=== PATIENT | male | born 1955 | race Caucasian/White ===

== ENCOUNTER 2023-01-18 10:49 | Emergency (ER) | payer OTHER ==
--- OUTSIDE RECORDS SUMMARY | 2023-01-18 10:53 | XMS REPORT | Continuity of Care Document ---
:1955 Author Organization [facility] t Address [address] [place] [address] [address] [place] [address] Care Team Providers Name Role Phone Gregg Prather Primary Care Physician GARY GONZALEZ Attending Clinician Unavailable LISYS SPARKS Attending Clinician Unavailable Bridger SLAUGHTER, Lissy Sellers Attending Clinician Bushra Gonzalez MD Attending Clinician Deb Delgado MA Attending Clinician Unavailable Saji España MD Attending Clinician Jensen Linares MD Attending Clinician Portia Glynn NP Attending Clinician Dmitriy Bond MD Attending Clinician [phone] Nurse, [facility] Attending Clinician Unavailable Gary Gonzalez MD Attending Clinician GARY GONZALEZ Admitting Clinician Unavailable SAJI ESPAÑA Admitting Clinician Unavailable Payers Payer Name Policy Type Policy Number Effective Date Expiration Date S caleb [facility] [id number] 2018 PPO 00:00:00 [employer] [id number] 2021 OUT OF NETWORK 00:00:00 Problems Condition Condition Condition Status Onset Resolution Last Treating Co mments Source Name Details Category Date Date Treatment Clinician Date 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 Diagnosed with MG in late May/ early June. On medicatio ns with good results. Acute Acute Disease Active Overview: Univer s medial medial 12-20 Formattin ity of meniscus meniscus 00:00: g of this [place] as tear of tear of 00 note Medical left knee, left knee, might be Branch subsequent subsequent different encounter encounter from the original. Added automatic ally from request for surgery [id number] Myasthenia Myasthenia Disease Active M ethodi gravis gravis 2-16 st 00:00: Hospita 00 l Arthropath Arthropath Disease Active 2017-07 U nivers y of y of 07-16 ity of lumbar lumbar 00:00: [place] facet facet 00 Medical joint joint Branch Degenerati Degenerati Disease Active 2017-07 M ethodi on of on of 07-16 st lumbar lumbar 00:00: Hospita interverte interverte 00 l bral disc bral disc Low back Low back Disease Active 2017-07 Metho di pain pain 07-16 st 00:00: Hospita 00 l Lumbar Lumbar Disease Active 2017-07 Methodi radiculopa rad[address] thy thy 00:00: Hospita 00 l Spinal Spinal Disease Active 2017-07 Methodi stenosis stenosis 1 st of lumbar of lumbar 00:00: Hosp murali region region 00 l Type 2 Type 2 Disease Active 2017-07 Methodi diabetes diabetes 0-31 st mellitus mellitus 00:00: Hospit a without without 00 l complicati complicati on, on, without without long-term long-term current current use of use of insulin insulin Dislocatio Dislocatio Disease Active Overview : Univers n of n of 9-13 Formattin ity of tarsometat tarsometat 00:00: g of this [place] arsal arsal 00 note Medical joint of joint of might be Bran ch right right different foot, foot, from the subsequent subsequent original. encounter encounter Added automatic ally from request for surgery [id number] Lisfranc Lisfranc Disease Active Unive rs dislocatio dislocatio 02-11 it y of n, right, n, right, 00:00: [place] deal initial initial 00 Medical encounter encounter Bran ch Dislocatio Dislocatio Disease Active Overview : Methodi n of joint n of joint 02-[address] foot of foot 00:00: g of this Hospi ta 00 note l might be different from the original. 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 Social History Social Habit Start Date Stop Date Quantity Comments Source Gender identity 2020-09-30 Identifies as male Stella solisst 11:51:23 gender (finding) Hospital Sexual orientation 2020-09-30 Heterosexual Meth odist 11:51:23 (finding) Hospital Exposure to Not sure University of SARS-CoV-2 (event) [facility] Alcohol intake 2022-11-27 2022-11-27 Current non-drinker M ethodist 00:00:00 00:00:00 of [facility] (finding) History of Social 2022-11-27 2022-11-[address] function 00:00:00 00:00:00 Hospital Tobacco use and 2022-11-22 2022-11-22 Smokeless tobacco Me thodist exposure 00:00:00 00:00:00 non-user Hospital Sex Ass[birth year] At [birth year] ARTURO Mclean 00:00:00 00:00:00 [facility] Center Smoking Status Start Date Stop Date Source Never smoked tobacco [facility] Medications Ordered Filled Start Stop Current Ordering Indication Dosage Frequency Signature Comments Components Source Medication Medication Date Date Medication? Clinician (SIG) Name Name HYDROcodone 2022- No 1{tbl} 1 tablet, Univers -acetaminop 01-18 Oral, ity of hen (NORCO) 15:30: 14:40 [place]CE[place] 1 [place] 10-325 mg 00 :00 dose, On Medica l tablet 1 Jhoaan 01/18/23 Branc h tablet at 1030, Routine lidocaine-e No 10mL 10 mL, Uni vers pinephrine 01-18 Intraderma it y of (XYLOCAINE 14:45: 14:41 l, ONCE, 1 [place] WITH 00 :00 dose, On Medical EPINEPHRINE Jhoana 01/18/23 Br anch ) 1 at 0945, %-1:100,000 [place] injection 10 mL methocarbam 2022- No 1000mg 1,000 mg, Univers oL 01-18 Oral, ity of (ROBAXIN) 14:45: 14:40 ONCE, 1 [place] tablet 00 :00 dose, On Medical 1,000 mg Jhoana 01/18/23 Branc h at 0945, [place] immun glob 2022- No weekly. Uni vers G,IgG,/pro/ 01-18 ity of IgA 0-50 10:25: 00:00 [place] (HIZENTRA 56 :00 Medical NE) Branch ALPRAZolam 2022- No 1mg Take 1 Univ ers 1 mg tablet 01-18 tablet by it y of 10:25: 00:00 mouth. [place] 56 :00 Medical Branch ALPRAZolam Yes 1mg QD Take 1 Metho di (XANAX) 1 11-23 tablet (1 st MG tablet 11:07: mg total) Hos [place] 19 by mouth l nightly as needed for anxiety. immun glob Yes Q7D once a Metho di G,IgG,/pro/ 5- week. st IgA 0-50 11:07: Hospita (HIZENTRA 19 l SUBQ) semaglutide Yes as Method i (Ozempic) 1 11-[address] mg/dose (4 00:00: Subcutaneo H ospita mg/3 mL) 00 us weekly l subcutaneou for 30 s pen days semaglutide Yes as Univer s (OZEMPIC) 11-21 directed ity of mg/dose (4 00:00: Subcutaneo [place] mg/3 mL) 00 us weekly Medica l PnIj for 30 Branch days diphenhydrA 2023- No [id number] Take one Methodi MINE 07-[address] (BENADRYL) 00:00: 05:59 30 minutes Hospita 25 mg 00 :00 prior to l tablet beginning hyzentra infusion diphenhydrA 2023- No Take one U nivers MINE 25 mg 07-26 to 2 pills it y of tablet 00:00: 05:59 30 minutes [place] 00 :00 prior to Medical beginning Branch hyzentra infusion epINEPHrine Yes Method i (EPIPEN) -11 st 0.3 mg/0.3 00:00: Hospita mL 00 l auto-inject or pyridostigm 2020-07- No [id number] 90mg Q.25D Take 1.5 Methodi ine 08-02 11-[address] (Mestinon) 00:00: 05:59 (90 mg Hosp murali 60 mg 00 :00 total) by l tablet mouth 4 (four) times a day. mycophenola 2020-07- No [id number] 1500 mg (3 Methodi te 0-11 10-13 109 pills) st (CELLCEPT) 00:00: 04:59 each Hospit a 500 mg 00 :00 morning, l tablet and 1000 mg (2 pills) each evening ALPRAZolam 2020-0 Yes 1mg Take 1 mg Un jd 1 mg tablet 4-12 by mouth. ity of 00:24: [place] [id number] Medical Branch ALPRAZolam 2020-0 Yes 1mg Take 1 mg Un jd 1 mg tablet 4-11 by mouth. ity of 19:24: [place] [id number] Medical Branch pyridostigm 2020-0 Yes 90mg Take 90 mg Univers ine 60 mg 3-30 by mouth ity of tablet 22:55: every 6 [place] 45 (six) Medical hours. Branch mycophenola 2020-0 Yes 1000mg Take 1,000 Univers te mofetil 3-30 mg by ity of 500 mg 22:55: mouth [place] tablet 45 every 12 Medical (twelve) Branch hours. pyridostigm 2020-0 Yes 90mg Take 90 mg Univers ine 60 mg 3-30 by mouth ity of tablet 17:55: every 6 [place] 45 (six) Medical hours. Branch mycophenola 2020-0 Yes 1000mg Take 1,000 Univers te mofetil 3-30 mg by ity of 500 mg 17:55: mouth [place] tablet 45 every 12 Medical (twelve) Branch hours. ondansetron 2020-0 Yes [id number] 4mg Take 1 Univers (ZOFRAN) 4 3-30 [id number] tablet by it y of mg tablet 00:00: mouth [place] 00 every 6 Medical (six) Branch hours. ondansetron 2020-0 Yes [id number] 4mg Take 1 Univers (ZOFRAN) 4 3-30 [id number] tablet by it y of mg tablet 00:00: mouth [place] 00 every 6 Medical (six) Branch hours. lidocaine 5 2020-0 Yes Univer s % ointment 3-05 ity of 00:00: [place] 00 Medical Branch lidocaine 5 2020-0 Yes Univer s % ointment 3-05 ity of 00:00: [place] 00 Medical Branch HIZENTRA 10 2020-0 Yes Univer s gram/50 mL 3-04 ity of (20 %) 00:00: [facility] 00 Medical s infusion Branch RTU HIZENTRA 10 2020-0 Yes Univer s gram/50 mL 3-04 ity of (20 %) 00:00: [facility] 00 Medical s infusion Branch RTU EPINEPHrine Yes FOR SEVERE Univers 0.3 mg/0.3 1-20 ALLERGIC ity o f mL 00:00: REACTION, [place] injection 00 INJECT 1 Medica l PEN INTO Branch THIGH MUSCLE. CALL 911. IF SYMPTOMS CONTINUE, MAY REPEAT INJECTION IN 5-15 MINUTES. EPINEPHrine Yes FOR SEVERE Univers 0.3 mg/0.3 1-20 ALLERGIC ity o f mL 00:00: REACTION, [place] injection 00 INJECT 1 Medica l PEN INTO Branch THIGH MUSCLE. CALL 911. IF SYMPTOMS CONTINUE, MAY REPEAT INJECTION IN 5-15 MINUTES. traZODone Yes Univers 50 mg 1-16 ity of tablet 00:00: [place] Medical Branch traZODone Yes Univers 50 mg 1-16 ity of tablet 00:00: [place] Medical Branch lisinopriL 2019-07 Yes Univers 10 mg 2-26 ity of tablet 00:00: [place] Medical Branch lisinopriL 2019-07 Yes Univers 10 mg 2-26 ity of tablet 00:00: [place] Medical Branch lisinopriL 0 Yes 10mg QD Take 1 Metho di (PRINIVIL) 9-29 tablet (10 st 10 mg 00:00: mg total) Hospita tablet 00 by mouth l daily. traMADOL 50 Yes [id number] 50mg Take 1 Univers mg tablet 7 [id number] tablet by ity of 00:00: mouth [place] 00 every 6 Medical (six) Branch hours as needed for Pain (scale 4-6). traMADOL 50 Yes [id number] 50mg Take 1 Univers mg tablet 7-08 [id number] tablet by ity of 00:00: mouth [place] 00 every 6 Medical (six) Branch hours as needed for Pain (scale 4-6). Immunizations Ordered Filled Immunization Date Status Comments [facility] Immunization Name Name Influenza Virus 2018-05-17 Completed Universit y of Vaccine Quad .5 mL 00:00:00 [place] Medical IM 6+ MO Branch Influenza Virus 2018-05-17 Completed Universit y of Vaccine Quad .5 mL 00:00:00 [facility] IM 6+ MO Branch Td 2018-02-[address] [facility] 00:00:00 [facility] TD, NOS 2018-02-[address] [facility] 00:00:00 [facility] Vital Signs Vital Name Observation Time Observation Value Comments Source Systolic blood 2023-01-18 13:59:00 168 mm[Hg] Univer sity of pressure [facility] Diastolic blood 2023-01-18 13:59:00 86 mm[Hg] Unive rsity of [facility] Heart rate 2023-01-18 13:59:00 73 /min Universi ty [facility] Body temperature 2023-01-18 13:59:00 37 [facility] Respiratory rate 2023-01-18 13:59:00 18 /min [facility] Body height 2023-01-18 13:59:00 182.9 cm Universi ty [facility] Body weight 2023-01-18 13:59:00 126.554 kg Universi ty [facility] BMI 2023-01-18 13:59:00 37.84 kg/m2 [facility] [place] Oxygen saturation in 2023-01-18 13:59:00 99 /min University Arterial blood by [facility] Pulse oximetry [place] Body temperature 2020-10-25 21:33:00 36.67 [facility] [place] [facility] Body weight 2020-10-25 21:33:00 121.11 kg Universi ty [facility] BMI 2020-10-25 21:33:00 36.21 kg/m2 Universi ty [facility] Systolic blood 2022-11-23 15:55:00 123 mm[Hg] Method [facility] pressure Diastolic blood 2022-11-23 15:55:00 77 mm[Hg] [facility] pressure Heart rate 2022-11-23 15:55:00 56 /min [facility] Body temperature 2022-11-23 15:55:00 36.5 [facility] Respiratory rate 2022-11-23 15:55:00 18 /min [facility] Oxygen saturation in 2022-11-23 15:55:00 99 /min [facility] Arterial blood by Pulse oximetry Body height 2022-11-23 13:50:00 182.9 cm [facility] Body weight 2022-11-23 13:50:00 129.366 kg [facility] BMI 2022-11-23 13:50:00 38.68 kg/m2 [facility] Procedures Procedure Date / Time Performing Source Performed Clinician XR SCAPULA LEFT 2023-01-[address] [facility] 15:04:37 [facility] NOTICE OF PRIVACY PRACTICES 2023-01-18 [facility] of 13:46:20 Unassigned, No [facility] CONSENT/REFUSAL FOR DIAGNOSIS AND 2023-01-18 [facility] TREATMENT 13:45:57 Unassigned, No [facility] SURGICAL PATHOLOGY REQUEST 2022-11-23 Saji España [facility] 16:38:00 Hospital ESOPHAGOGASTRODUODENOSCOPY (EGD) 2022-11-23 Saji España 14:46:00 Hospital COLONOSCOPY 2022-11-23 Saji España 14:46:00 Hospital POC GLUCOSE 2022-11-23 Saji España 14:05:00 [facility] STRIATIONAL (STRIATED MUSCLE) AB,S 2022-10-11 Bushra Gonzalez 13:18:00 [facility] ACETYLCHOLINE RECEPTOR (ACHR) 2022-10-11 Bushra Gonzalez BINDING ANTIBODIES WITH REFLEX TO 13:18:00 [facility] MUSK ANTIBODIES REFLEX TEST INFORMATION 2 2022-10-11 Bushra Gonzalez ist 13:18:00 [facility] COMPREHENSIVE METABOLIC PANEL 2022-03-17 Bushra Gonzalez 15:05:00 [facility] CBC WITH PLATELET AND DIFFERENTIAL 2022-03-17 Bushra Gonzalez 15:05:00 [facility] MAGNESIUM LEVEL 2022-03-17 Bushra Gonzalez 15:05:00 [facility] PHOSPHORUS LEVEL 2022-03-17 Bushra Gonzalez 15:05:00 [facility] HEAVY METALS PANEL 3, BLOOD 2022-03-17 Bushra Gonzalez odist 15:05:00 [facility] Plan of Care Planned Activity Planned Date Details Comments Source Future Scheduled 2023-03-16 Influenza Vaccine (#1) [facility] 00:00:00 [code = Influenza Medical Ce nter Vaccine (#1)] Future Scheduled 2023-01-18 Screening for [facility] Test 10:51:33 malignant neoplasm of colon (procedure) [code = 768406280] Future Scheduled 2023-01-18 SHINGLES VACCINES (1 [facility] Test 10:51:33 of 2) [code = SHINGLES VACCINES (1 of 2)] Future Scheduled 2023-01-18 INFLUENZA VACCINE Method ist Hospital Test 10:51:33 [code = INFLUENZA VACCINE] Future Scheduled 2023-01-18 Screening for [facility] Test 10:51:33 malignant neoplasm of colon (procedure) [code = 638324872] Future Scheduled 2023-01-18 [facility] for [facility] Test 10:51:33 malignant neoplasm of colon (procedure) [code = 937175522] Future Scheduled 2023-01-18 [facility] for [facility] Test 10:51:33 malignant neoplasm of colon (procedure) [code = 017654600] Future Scheduled 2023-01-18 COVID-19 VACCINE (#1) [facility] Test 10:51:33 [code = COVID-19 VACCINE (#1)] Future Scheduled 2023-01-18 65+ [facility]AL [facility] Test 10:51:33 VACCINE (1 - PCV) [code = 65+ PNEUMOCOCCAL VACCINE (1 - PCV)] Future Scheduled 2023-01-18 DIABETES: RETINAL EYE [facility] Test 10:51:33 EXAM [code = DIABETES: RETINAL EYE EXAM] Future Scheduled 2023-01-[address] [facility] Test 10:51:33 [code = DIABETIC FOOT EXAM] Future Scheduled 2023-01-18 Hepatitis C screening [facility] Test 10:51:33 (procedure) [code = 867567186] Future Scheduled 2023-01-18 [facility] Test 10:51:33 malignant neoplasm of colon (procedure) [code = 030840499] Future Scheduled 2022-07-[address] [facility] Test 00:00:00 (12+) [code = Medical Center DEPRESSION SCREENING (12+)] Future Scheduled 2022-07-16 FALLS RISK SCREENING [facility] Test 00:00:00 [code = FALLS RISK Medical C enter SCREENING] Future Scheduled 2022 PNEUMOCOCCAL 65+ YRS [facility] Test 00:00:00 (1 - PCV) [code = Medical Ce nter PNEUMOCOCCAL 65+ YRS (1 - PCV)] Future Scheduled 2007 SHINGLES VACCINES ([address] [facility] Test 00:00:00 of 2) [code = SHINGLES Medic al Center VACCINES (1 of 2)] Future Scheduled 1976-01-10 DTAP/TDAP/TD VACCINES [facility] Test 00:00:00 (1 - Tdap) [code = Medical C enter DTAP/TDAP/TD VACCINES (1 - Tdap)] Future Scheduled 1975 HEPATITIS C SCREENING [facility] 00:00:00 [code = HEPATITIS C Medical Center SCREENING] Future Scheduled [address] [facility] Test 00:00:00 Counseling and Medical Cente r Screening (12+) [code = Tobacco Cessation Counseling and Screening (12+)] Future Scheduled 1955 COVID-19 VACCINE (#1) [facility] 00:00:00 [code = COVID-[address] VACCINE (#1)] Future Scheduled [address] Test 00:00:00 (combo) [code = CT Medical C enter Colonography (combo)] Future Scheduled [address] [facility] 00:00:00 malignant neoplasm of Medica l Center colon (procedure) [code = 650407668] Future Scheduled [address] [facility] Test 00:00:00 malignant neoplasm of Medica l Center colon (procedure) [code = 969853461] Future Scheduled [address] [facility] Test 00:00:00 malignant neoplasm of Medica l Center colon (procedure) [code = 070126224] Future Scheduled [address] [facility] Test 00:00:00 malignant neoplasm of Medica l Center colon (procedure) [code = 026731979] Future Scheduled 1955 Sigmoidoscopy [code = [facility] 00:00:00 Sigmoidoscopy] Medical Cente r Encounters Start End Encounter Admission Attending Care Care Encounter Source Date/Time Date/Time Type Type Clinicians Facility Department ID 2021-05-15 Outpatient R [facility] VLS [id number] Univers 06:39:29 GARY abebe [facility] 2023-01-18 2023-01-18 Emergency X [facility] ERT [id number] Univers 09:03:00 10:25:00 LISSY abebe of [facility] 2023-01-18 2023-01-18 Emergency [facility] [id number] [facility] 09:03:00 10:25:00 Lissy GARCIA 350.1.13.10 itrodriguez [facility] 4.2.7.2.686 [facility] [id number] [address] 2023-01-15 2023-01-15 Toño Gonzalez 1.2.840.1 [id number] Methodi 00:00:00 00:00:[address] [place] 3.430.2.7 Hospit a .3.751786 l .8 2023-01-05 2023-01-05 Telephone Danny 1.2.840.1 [id number] Methodi 00:00:00 00:00:[address] 3.430.2.7 Hospit a .3.850398 l .8 2022-11-23 2022-11-23 [facility] 1.2.840.1 [id number] Methodi 08:11:00 11:07:00 Encounter Saji Jacinto 86541.1.1 589 [address] t 3.430.2.7 Hospit a .3.232925 l .8 2022-11-23 2022-11-23 Surgery [facility], 1.2.840.1 [id number] Methodi 09:30:00 10:30:[address] 3.430.2.7 Hospit a .3.789696 l .8 2022-11-23 2022-11-23 Anesthesia Jensen Linares 1.2.840.1 [id number] Methodi 09:46:00 10:26:00 Event Portia Glynn 67728.1.[address] 3.430.2.7 Hospit a .3.363533 l .8 2022-11-23 2022-11-23 Travel 1.2.840.1 [id number] [id number] Methodi 00:00:00 00:00:[address] 3.430.2.7 0.2.7.3.698 Ho spita .3.641674 084.8 l .8 2022-11-23 2022-11-23 Outpatient [facility] [id number] [place] 00:00:00 00:00:[address] 2022-11-02 2022-11-02 [id number] 00:00[facility]00 00:00:00 [facility] 2022-10-11 2022-10-11 Manish Gonzalez, 1.2.840.1 [id number] Methodi 00:00:00 00:00:00 Only Bushra 84017.1.[address] [place] 3.430.2.7 Hospit a .3.976896 l .8 2022-10-05 2022-10-05 Office Carlos 1.2.840.1 [id number] Methodi 08:30:00 09:23:01 Visit Bushra 08682.1.[address] [place] 3.430.2.7 Hospit a .3.026171 l .8 2022-10-05 2022-10-05 Travel 1.2.840.1 [id number] [id number] Methodi 00:00:00 00:00:[address] 3.430.2.7 0.2.7.3.698 Ho spita .3.490977 084.8 l .8 2022-10-05 2022-10-05 Outpatient CARLOS [facility] [id number] [address] [place] 00:00:00 00:00:00 BUSHRA [address] 2022-07-26 2022-07-26 Manish Gonzalez, 1.2.840.1 [id number] Methodi 00:00:00 00:00:00 Only Bushra 54740.1.[address] [place] 3.430.2.7 Hospit a .3.016508 l .8 2022-05-18 2022-05-18 Refperri Gonzalez, 1.2.840.1 [id number] Methodi 00:00:00 00:00:[address] [place] 3.430.2.7 Hospit a .3.406403 l .8 2022-04-27 2022-04-27 Telephone Carlos, 1.2.840.1 [id number] [id number] Methodi 00:00:00 00:00:[address] [place] 3.430.2.7 Hospit a .3.511011 l .8 2022-04-24 2022-04-24 Telephone Carlos, 1.2.840.1 [id number] Methodi 00:00:00 00:00:[address] [place] 3.430.2.7 Hospit a .3.027816 l .8 2022-04-21 2022-04-21 Telephone Carlos, 1.2.840.1 [id number] Methodi 00:00:00 00:00:[address] [place] 3.430.2.7 Hospit a .3.320100 l .8 2022-04-20 2022-04-20 Telephone Gonzalez, 1.2.840.1 [id number] [id number] Methodi 00:00:00 00:00:[address] [place] 3.430.2.7 Hospit a .3.028829 l .8 2022-04-19 2022-04-19 Telephone Gonzalez, 1.2.840.1 [id number] [id number] Methodi 00:00:00 00:00:[address] [place] 3.430.2.7 Hospit a .3.948045 l .8 2022-04-12 2022-04-12 Toño Gonzalez, 1.2.840.1 [id number] Methodi 00:00:00 00:00:[address] [place] 3.430.2.7 Hospit a .3.190762 l .8 2022-03-15 2022-03-15 Office Carlos 1.2.840.1 [id number] Methodi 09:30:00 10:23:04 Visit Bushra 80446.1.[address] [place] 3.430.2.7 Hospit a .3.899413 l .8 2022-03-15 2022-03-15 Travel 1.2.840.1 [id number] [id number] Methodi 00:00:00 00:00:[address] 3.430.2.7 0.2.7.3.698 Ho spita .3.013095 084.8 l .8 2022-03-15 2022-03-15 [id number] [place] 00:00:00 00:00:00 BUSHRA [address] 2021-08-31 2021-08-31 [facility] [id number] [place] 00:00:00 00:00:00 BUSHRA 553 Method i 2021-01-27 2021-01-27 [facility] [id number] [place] 00:00:00 00:00:00 BUSHRA [address] 2021-01-21 2021-01-21 [id number] Univers 15:10:00 15:10:00 GARY itrodriguez of [facility] 2020-11-26 2020-11-26 Outpatient R [facility] [id number] Univers 16:30:00 16:30:00 ity [facility] 2020-11-26 2020-11-26 Outpatient R [facility] [id number] Univers 11:30:00 11:30:00 ity [facility] 2020-10-25 2020-10-25 Nurse Nurse, [facility] [id number] Univers 16:31:06 17:25:43 Visit Gary Gonzalez 350.1.13.10 ity of CARE 4.2.7.2.686 [facility] AT [id number] Ok lauren THOMSON [address] [place] [address] 2020-10-25 2020-10-25 Outpatient Royal GONZALEZ [facility] [id number] Univers 16:30:00 16:30:00 GARY abebe [facility] 2020-10-19 2020-10-19 Outpatient Royal GONZALEZ [facility] [id number] Univers 13:30:00 13:30:00 GARY abebe [facility] 2020-10-18 2020-10-18 Outpatient Royal GONZALEZ [facility] [id number] Univers 09:40:00 09:40:00 GARY [facility] 2020-10-11 2020-10-11 Outpatient Royal [facility] [id number] Univers 08:15:00 08:15:00 rodriguez [facility] 2020-10-07 2020-10-07 [facility] [id number] [place] 00:00:00 00:00:00 BUSHRA 996 Method i 2020-09-17 2020-09-17 Outpatient Royal GONZALEZ [facility] [id number] Univers 15:50:00 15:50:00 GARY [facility] 2020-09-04 2020-09-04 [facility] [id number] Univers 11:07:02 23:59:00 GARY [facility] 2020-08-27 2020-08-27 [facility] [id number] Univers 15:30:00 15:30:00 GARY [facility] 2020-04-14 2020-04-14 [facility] [id number] [place] 00:00:00 00:00:00 BUSHRA 941 Method i 2019-10-06 2019-10-06 [facility] [id number] [place] 00:00:00 00:00:[address] 2019-03-14 2019-03-14 Office Casey Gonzalez [id number] 10:15:03 10:25:03 Visit Gary Hager 350.1.13.10 s and 4.2.7.2.686 Adult [id number] Primary [facility] Results Test Description Test Time Test Comments Results Result Comments Source Surgical pathology request 2022-11-24 22:03:24 Test Item Value Reference Range Interpretation Comme nts Case number (test code = [id number]) [id number] Surgical pathology report (test code = See link below for PDF Lab R eport 2259) Result status (test code = 5016294) This is Final Report for [id number] [facility] [id number] 14:06:00 Test Item Value Reference Range Interpretation Comments POC glucose (test code = 133 mg/dL 65-99 H Ope rator Name: [id number]) Wes Ron vice ID: [id number] Lab Interpretation (test Abnormal code = 96092-9) [facility],[id number] 21:09:00 Test Item Value Reference Range Interpretation Comments Striated muscle 1:1000 See_Comment [Automated Ab (test code = message] The 5372-8) system which generated this result transmitted reference range : Neg:<1:100. The reference range was not used to interpret this result as normal/abnormal . JANES (test code Test(s) = JANES) 482731-Spqlcbpij Abs, Serumwas developed and its performance characteristics determinedby [facility]. It has not been cleared or approved by the Foodand Drug Administration.Perform ed at: [address] [place] [address] [id number] Director: Shelley Ramirez MD, Phone: [phone] [facility] Center[facility]etylcholine receptor (AChR) binding antibodies with reflex to MuSK [id number] 21:09:00 Test Item Value Reference Range Interpretation Comments Acetylcholine receptor 77.00 nmol/L 0.00-0.24 H Res ults binding Ab (test code verifi ed by = 73790-2) repeat testing Negative: 0.00 - 0.24 Borderline: 0.25 - 0.40 Positive: >0.40 JANES (test code = JANES) Performed at: [address] [place] [address] [id number] Director: Shelley Ramirez MD, Phone: [phone] Lab Interpretation Abnormal (test code = 38350-9) [facility] Center[facility] Test [id number] 21:09:00 Test Item Value Reference Range Interpretation Comments Reflex Test Comment Reflex test not Information (test indicated. code = 5767) JANES (test code = Performed at: - JANES) [facility] [id number] Director: Shelley Ramirez MD, Phone: [phone] [facility] CenterHeay metals panel 3, [id number] 12:08:00 Test Item Value Reference Interpretation Comments Range Lead, blood <1 0-4 Testing perform ed by (test code Inductively cou pled = 5671-3) plasma/Mass Spe ctrometry. Environmental E xposure: WHO Recommendation <20 Occupational Ex posure: OSHA Lead Std 40 WHITNEY 30 Detection Limit = 1This t est was developed and i ts performancechar acteristics determined by [facility]. It has not beencleared or approved by the Food and Drug Administration. Arsenic 1 ug/L 0-9 Detection Limi t = 1 (test code = 5583-0) Mercury, 1.4 ug/L 0.0-14.9 Environmental Exposure: blood (test <15.0 Occupatio nal Exposure: code = WHITNEY - Inorganic Mercury: 15.0 5685-3) Detection Limit = 1.0 JANES (test Test(s) code = JANES) 233863-Uecfxkh, Blood; 478627-Dipyqqm, Bloodwas developed and its performance characteristics determinedby [facility]. It has not been cleared or approved by the Foodand Drug Administration.Per formed at: - [facility] [id number] Director: Shelley Ramirez MD, Phone: [phone] [facility] CenterComprehensive metabolic [id number] 13:11:00 Test Item Value Reference Range Interpretation Comments Glucose (test code = 177 mg/dL 65-99 H 2345-7) BUN (test code = 10 mg/dL 8-27 3094-0) Creatinine (test code 1.10 mg/dL 0.76-1.27 = 2160-0) eGFR (test code = 74 mL/min/1.73 >=59 8257) BUN/creatinine ratio 9 10-24 L (test code = 3097-3) Sodium (test code = 140 mmol/L 620-068 7296-2) Potassium (test code 4.8 mmol/L 3.5-5.2 = 2823-3) Chloride (test code = 103 mmol/L 96-106 2075-0) CO2 (test code = 22 mmol/L 20-29 2027-9) Calcium (test code = 9.1 mg/dL 8.6-10.2 07855-9) Protein (test code = 6.9 g/dL 6.0-8.5 2885-2) Albumin, S (test code 4.0 g/dL 3.8-4.8 = 1751-7) Globulin, total (test 2.9 g/dL 1.5-4.5 code = 10054-5) Albumin/globulin 1.4 1.2-2.2 ratio (test code = 1759-0) Total bilirubin (test 0.3 mg/dL 0.0-1.2 code = 1974-2) Alkaline phosphatase 57 See_Comment [Autom ated (test code = 6768-6) message ] The system which generated this result transmitted reference range : 44 - 121 IU/L. The reference range was not used to interpr et this result as normal/abnormal . AST (test code = 22 See_Comment [Automated 1920-02) message] The system which generated this result transmitted reference range : 0 - 40 IU/L. Th e reference range was not used to interpret this result as normal/abnormal . ALT (test code = 24 See_Comment [Automated 1741-12) message] The system which generated this result transmitted reference range : 0 - 44 IU/L. Th e reference range was not used to interpret this result as normal/abnormal . JANES (test code = JANES) Performed at: [facility] [id number] Director: Adryan Michelle MD, Phone: [phone] Lab Interpretation Abnormal (test code = 89790-9) [facility]2022-09-03 13:11:00 Test Item Value Reference Range Interpretation Comments Magnesium (test code = 2.1 mg/dL 1.6-2.3 79006-8) JANES (test code = JANES) Performed at: - [facility] [address] [id number] Director: Adryan Michelle MD, Phone: [phone] [facility]2022-09-03 13:11:00 Test Item Value Reference Range Interpretation Comments Phosphorus (test code = 2.6 mg/dL 2.8-4.1 L 2777-1) JANES (test code = JANES) Performed at: - [facility] [address] [id number] Director: Adryan Michelle MD, Phone: [phone] Lab Interpretation (test Abnormal code = 05939-2) [facility] with platelet and [id number] 13:11:00 Test Item Value Reference Range Interpretation Comments WBC (test code = 4.8 See_Comment [Automated 7779-2) message] The system which generated this result transmitted reference range : 3.4 - 10.8 x10E3/uL. The reference range was not used to interpret this result as normal/abnormal . RBC (test code = 4.26 See_Comment [Automated 602-8) message] The system which generated this result transmitted reference range : 4.14 - 5.80 x10E6/uL. The reference range was not used to interpret this result as normal/abnormal . HGB (test code = 12.1 g/dL 13.0-17.7 L 718-7) HCT (test code = 38.1 % 37.5-51.0 4544-3) MCV (test code = 89 fL 79-97 787-2) MCH (test code = 28.4 pg 26.6-33.0 785-6) MCHC (test code = 31.8 g/dL 31.5-35.7 786-4) RDW (test code = 12.9 % 11.6-15.4 788-0) Platelet count (test 196 See_Comment [Autom ated code = 157-3) message] The system which generated this result transmitted reference range : 150 - 450 x10E3/uL. The reference range was not used to interpret this result as normal/abnormal . Neutrophils (test 61 % Not Estab. code = 770-8) Lymphocytes (test 28 % Not Estab. code = 736-9) Monocytes (test code 9 % Not Estab. = 5905-5) Eosinophils (test 1 % Not Estab. code = 713-8) Basophils (test code 1 % Not Estab. = 706-2) Neutrophils, absolute 2.9 See_Comment [Auto mated (test code = 751-8) message] The system which generated this result transmitted reference range : 1.4 - 7.0 x10E3/uL. The reference range was not used to interpret this result as normal/abnormal . Lymphocytes, absolute 1.4 See_Comment [Auto mated (test code = 731-0) message] The system which generated this result transmitted reference range : 0.7 - 3.1 x10E3/uL. The reference range was not used to interpret this result as normal/abnormal . Monocytes, absolute 0.4 See_Comment [Automa monae (test code = 742-7) message] The system which generated this result transmitted reference range : 0.1 - 0.9 x10E3/uL. The reference range was not used to interpret this result as normal/abnormal . Eosinophils, absolute 0.1 See_Comment [Auto mated (test code = 711-2) message] The system which generated this result transmitted reference range : 0.0 - 0.4 x10E3/uL. The reference range was not used to interpret this result as normal/abnormal . Basophils, absolute 0.0 See_Comment [Automa monae (test code = 704-7) message] The system which generated this result transmitted reference range : 0.0 - 0.2 x10E3/uL. The reference range was not used to interpret this result as normal/abnormal . Immature granulocytes 0 % Not Estab. (test code = 89457-7) Immature 0.0 See_Comment [Automated granulocytes, message] The absolute (test code = system which 53649-7) generated this result transmitted reference range : 0.0 - 0.1 x10E3/uL. The reference range was not used to interpret this result as normal/abnormal . JANES (test code = JANES) Performed at: [facility] [address] [place], [place] [id number] Director: Adryan Michelle MD, Phone: [phone] Lab Interpretation Abnormal (test code = 47821-5) [facility]
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
[2023-01-18] MEDS ORDERED: LIDOCAINE 1% MPF 30 ML VIAL ONE (12:08)
--- NOTE | 2023-01-18 12:14 | ER ---
Nurse's Notes [facility] Name: Christopher Mary Age: 68 yrs Sex: Male : 1955 Arrival Date: 01/18/2023 Time: 10:49 Bed 11 Private MD: Gregg Prather E Diagnosis: Unspecified injury of head, initial encounter;Laceration without foreign body of scalp Presentation: 01/18 11:01 Chief complaint: Patient states: Stumbled and fell this AM. Large laceration to back of ll1 head. + LOC. No blood thinners. Given [place] and Robaxin GLASS [employer]KER. Coronavirus screen: Client denies travel out of the [place] in the last 14 days. At this time, the client does not indicate any symptoms associated with coronavirus-19. Coronavirus screen: Vaccine status: Patient reports receiving the 2nd dose of the covid vaccine. Ebola Screen: Patient denies travel to an Ebola-affected area in the 21 days before illness onset. Initial Sepsis Screen: Does the patient meet any 2 criteria? No. Patient's initial sepsis screen is negative. Does the patient have a suspected source of infection? Yes: Skin breakdown/wound. Risk Assessment: Do you want to hurt yourself or someone else? Patient reports no desire to harm self or others. Onset of symptoms was January 18, 2023. 11:01 Method Of Arrival: Ambulatory ll1 11:01 Acuity: BRYANNA 3 ll1 Triage Assessment: 11:05 General: Appears in no apparent distress. Behavior is calm, cooperative, appropriate ll1 for age. Pain: Complains of pain in head Pain currently is 3 out of 10 on a pain scale. Quality of pain is described as aching. Neuro: Reports headache a syncopal episode. Derm: Reports laceration back of head. Injury Description: Laceration. Historical: - Allergies: 11:00 No Known Drug Allergies; ll1 - PMHx: 11:00 Hypertension; enlarged prostate; M.G.; ll1 - Immunization history:: Adult Immunizations up to date, Last tetanus immunization: < 5 years ago. - Social history:: Smoking status: Patient denies any tobacco usage or history of. Screenin:32 [facility] ED Fall Risk Assessment (Adult) History of falling in the last 3 months, ko1 including since admission Yes- single mechanical fall (1 pt) Confusion or Disorientation No (0 pts) Intoxicated or Sedated No (0 pts) Impaired Gait No (0 pts) Mobility Assist Device Used No (0 pt) Altered Elimination No (0 pt) Score/Fall Risk Level 0 - 2 = Low Risk Oriented to surroundings, Maintained a safe environment, Educated pt \T\ family on fall prevention, incl call for assistance when getting out of bed, Assessed \T\ reinforced patient's understanding of fall precautions, Provided non-skid footwear, Hourly rounding (assess needs \T\ fall precautionary measures) done, Used ambulatory aids as needed (educated on \T\ assisted with). Abuse screen: Denies threats or abuse. Denies injuries from another. Nutritional screening: No deficits noted. Tuberculosis screening: No symptoms or risk factors identified. Assessment: 11:57 Reassessment: No changes from previously documented assessment. Patient and/or family ll1 updated on plan of care and expected duration. Pain level reassessed. Vital Signs: 11:01 BP 141 / 99; Pulse 71; Resp 17; Temp 99; Pulse Ox 100% ; Weight 126.55 kg; Height 6 ft. ll1 0 in. ; Pain 3/10; 12:32 BP 138 / 84; Pulse 68; Resp 18; Pulse Ox 100% ; ko1 11:01 Body Mass Index 37.84 (126.55 kg, 182.88 cm) ll1 11:01 Pain Scale: Adult ll1 ED Course: 10:50 Patient arrived in ED. am2 10:50 Gregg Prather MD is Private Physician. am2 10:52 Kelley Chow FNP-C is [facility]. kb 10:52 Randell Sawyer MD is Attending Physician. kb 11:00 Arm band placed on Patient placed in an exam room, on a stretcher. ll1 11:03 Triage completed. ll1 11:13 CT Head C Spine In Process Unspecified. EDMS 11:57 Wound care: to laceration located on back of scalp was cleaned with Hibiclens, Patient ll1 tolerated well. 11:58 Thad Mario, SHERIE is Primary Nurse. ll1 12:32 Patient has correct armband on for positive identification. Bed in low position. Call ko1 light in reach. 12:32 Assist provider with laceration repair on back of head using denise. Set up tray. ko1 Performed by Kelley PA Patient tolerated well. Patient did not have IV access during this emergency room visit. Administered Medications: 12:14 Drug: Lidocaine Infiltration (1 %) 1 vials {Note: Given by Nyasia Chow.} Volume: 20 ss ml; Route: Infiltration; Medication: 12:32 VIS not applicable for this client. ko1 Outcome: 12:14 Discharge ordered by MD. mir 12:32 Discharged to home ambulatory, with family. ko1 12:32 Condition: improved 12:32 Discharge instructions given to patient, family, Instructed on discharge instructions, follow up and referral plans. medication usage, wound care, Demonstrated understanding of instructions, follow-up care, medications, wound care, Prescriptions given X 1. 12:34 Patient left the ED. ko1 Signatures: Dispatcher [employer] EDMS Kelley Chow, EXPEDITIONARY FIGHTING VEHICLE CREWMAN-C EXPEDITIONARY FIGHTING VEHICLE CREWMAN-CkMari Andino, RN RN ss Hayley Acosta Lynsay, RN RN ll1 Deena Hargrove RN RN ko1
--- NOTE | 2023-01-18 12:14 | EDPHYS ---
Physician Documentation [facility] Name: Christopher Mary Age: 68 yrs Sex: Male : 1955 Arrival Date: 01/18/2023 Time: 10:49 Bed 11 Private MD: Gregg Prather E ED Physician Randell Sawyer HPI: 01/18 13:25 This 68 yrs old Male presents to ER via Ambulatory with complaints of Fall Injury, Head kb Injury-Adult. 13:25 Details of fall: The patient fell from a height. Onset: The symptoms/episode kb began/occurred at 07:00. Associated injuries: The patient sustained injury to the head, laceration, pain. Severity of symptoms: At their worst the symptoms were moderate, in the emergency department the symptoms are unchanged. The patient has not experienced similar symptoms in the past. The patient has been recently seen at the [facility] Emergency Department, for similar complaints. Pt reports he slipped on a step around 0700 and hit his head on a post. States he had a brief period of LOC, but has not had any dizziness, confusion, n/v. States he went to [facility] and they gave him a norco and robaxin, but then he realized they didn't take his insurance so he left prior to CT and denise. Historical: - Allergies: 11:00 No Known Drug Allergies; ll1 - PMHx: 11:00 Hypertension; enlarged prostate; M.G.; ll1 - Immunization history:: Adult Immunizations up to date, Last tetanus immunization: < 5 years ago. - Social history:: Smoking status: Patient denies any tobacco usage or history of. ROS: 13:21 Constitutional: Negative for fever, chills, and weight loss. kb 13:21 Skin: Positive for laceration(s), of the back of head. 13:21 Neuro: Positive for headache, loss of consciousness. 13:21 All other systems are negative. Exam: 13:25 Constitutional: This is a well developed, well nourished patient who is awake, alert, kb and in no acute distress. Head/Face: Normocephalic, atraumatic. Eyes: Pupils equal round and reactive to light, extra-ocular motions intact. Lids and lashes normal. Conjunctiva and sclera are non-icteric and not injected. Cornea within normal limits. Periorbital areas with no swelling, redness, or edema. ENT: Moist Mucous membranes Cardiovascular: Regular rate and rhythm with a normal S1 and S2. No gallops, murmurs, or rubs. No pulse deficits. Respiratory: Respirations even and unlabored. No increased work of breathing. Talking in full sentences Abdomen/GI: Soft, non-tender. No distention MS/ Extremity: Pulses equal, no cyanosis. Neurovascular intact. Full, normal range of motion. Neuro: Awake and alert, GCS 15, oriented to person, place, time, and situation. Moves all extremities. Normal gait. 13:25 Skin: injury, laceration(s), the wound is approximately 8 cm(s), of the back of head, that can be described as clean, no foreign body, linear, without bleeding. Vital Signs: 11:01 BP 141 / 99; Pulse 71; Resp 17; Temp 99; Pulse Ox 100% ; Weight 126.55 kg; Height 6 ft. ll1 0 in. ; Pain 3/10; 12:32 BP 138 / 84; Pulse 68; Resp 18; Pulse Ox 100% ; ko1 11:01 Body Mass Index 37.84 (126.55 kg, 182.88 cm) ll1 11:01 Pain Scale: Adult ll1 Laceration: 12:13 Wound Repair of 8cm ( 3.1in ) subcutaneous laceration to scalp. Linear shaped.. Distal kb neuro/vascular/tendon intact. Anesthesia: Wound infiltrated with 9 mls of 1% lidocaine. Wound prep: Extensive cleansing with hibiclenz by nurse, Wound irrigation with saline by nurse. Skin closed with 8 1-0 Malone using staple gun. Patient tolerated well. MDM: 10:52 Patient medically screened. kb 13:24 Differential diagnosis: abrasion, closed head injury, fracture, laceration. Data kb reviewed: vital signs, nurses notes. Counseling: I had a detailed discussion with the patient and/or guardian regarding: the historical points, exam findings, and any diagnostic results supporting the discharge/admit diagnosis, radiology results, the need for outpatient follow up, a family practitioner, to return to the emergency department if symptoms worsen or persist or if there are any questions or concerns that arise at home. 01/18 11:01 Order name: CT Head C Spine; Complete Time: 11:35 kb 07/06 11:01 Order name: Wound Care; Complete Time: 11:57 kb Administered Medications: 12:14 Drug: Lidocaine Infiltration (1 %) 1 vials {Note: Given by Nyasia Chow.} Volume: 20 ss ml; Route: Infiltration; Disposition: 17:22 Co-signature as Attending Physician, Randell Sawyer MD I reviewed the patient's care rn provided by the Advanced Practice Provider and agree with the diagnosis and treatment plan. Disposition Summary: 01/18/23 12:14 Discharge Ordered Location: Home kb Condition: Stable kb Diagnosis - Unspecified injury of head, initial encounter kb - Laceration without foreign body of scalp kb Followup: kb - With: Emergency Department - When: As needed - Reason: Worsening of condition Followup: kb - With: Private Physician - When: 2 - 3 days - Reason: Recheck today's complaints, Continuance of care, Re-evaluation by your physician Discharge Instructions: - Discharge Summary Sheet kb - Laceration Care, Adult, Dlzn-vs-Tqbt kb - Concussion, Adult, Rxub-mr-Xpks kb - Head Injury, Adult, Hzss-sa-Zker kb Forms: - Medication Reconciliation Form kb - Thank You Letter kb - Antibiotic Education kb - Prescription Opioid Use kb - [employer]_Portal_[email or web address].htm kb Prescriptions: - Cyclobenzaprine 10 mg Oral Tablet - take 1 tablet by ORAL route every 8 hours As needed; 21 tablet; Refills: 0, kb Product Selection Permitted Signatures: Dispatcher [employer] Kelley Ralph, EMBER SANTANA-Randell Estrada MD MD rn Blanchard, Shelby, RN RN ss Lewis, Lynsay, RN RN ll1
[2023-01-18 12:54] VITALS: BP 138/84; TEMP 99; O2SAT 100
== END 2023-01-18 12:34 | disposition home or self-care (01) ==
LOC: ER 10:49
PROC: 0HQ0XZZ Repair Scalp Skin, External Approach (ICD-10-PCS; principal; 2023-01-18)
DX: S01.01XA Laceration without foreign body of scalp, initial encounter (principal); I10 Essential (primary) hypertension
CPT/HCPCS: 70450; 72125; 99284; 12004; J2001

== ENCOUNTER → 2023-08-21 | Emergency (ER) | payer OTHER ==
[~2023-08-21] MED LIST: CYCLOBENZAPRINE 10 MG TAB ONE; TRAMADOL HCL 50 MG TAB ONE
[2023-08-21 11:29] LABS: Absolute Lymphocytes (CBC) 1.5 K/uL (0.7-4.9); Hematocrit 40.5 % (39.6-49.0); Lymphocytes % 26.6 % (15.3-44.8); MCV 88.7 fL (80-100); MPV 8.4 fL (7.6-11.3); Platelets 197 thou/uL (152-406); RBC Red Blood Cell Count 4.57 M/uL (4.33-5.43)
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
== END ==
LOC: ER 10:44
DX: S20.222A Contusion of left back wall of thorax, initial encounter (principal); V59.49XA Driver of pick-up truck or van injured in collision with other motor vehicles in traffic accident, initial encounter; E11.9 Type 2 diabetes mellitus without complications; I10 Essential (primary) hypertension; Z28.310 Unvaccinated for COVID-19
CPT/HCPCS: 85025; 80048; 36415; 74177; Q9967